=== PATIENT | male | born 1960 | race Caucasian/White ===

== ENCOUNTER 2018-11-19 07:41 | Day surgery (SDC) | payer BC ==
[2018-11-19] MEDS ORDERED: Depo-Medrol 40 MG/ML IM ONE (07:42)
[2018-11-19] MEDS ORDERED: Sodium Chloride 0.9(Preservative Free) 10 ML IJ ONE (07:42)
[2018-11-19] MEDS ORDERED: MORPHINE SULFATE 10 MG/ML ONE (09:32)
[2018-11-19] MEDS ORDERED: DIPRIVAN 200 MG/20 ML IV ONE (09:47)
[2018-11-19] MEDS ORDERED: Ketamine HCl 50 MG/ML ONE (09:47)
--- NOTE | 2018-11-19 10:55 | XRAY ---
Indication: Right L4-L5 and L5-S1 transforaminal MAX. Intraoperative fluoroscopy was provided for 28 seconds. 2 digital spot images submitted for interpretation demonstrates posterior needle tips projecting over the expected course of the right L4 and L5 nerve roots. Small amount of contrast injected for needle tip placement. Correlate with intraoperative findings/report.
--- NOTE | 2018-11-19 10:59 | XRAY ---
28 seconds of fluoroscopy was used in surgery for a right L4-L5 and L5-S1 transforaminal MAX.
[2018-11-19] MEDS ORDERED: Lactated Ringers 1,000 ML IV ONE (13:32)
== END 2018-11-19 09:55 | disposition home or self-care (01) ==
LOC: SDC-PAIN 07:41
PROVIDERS: ATTEND Psychiatry & Neurology Pain Medicine
DX: M54.16 Radiculopathy, lumbar region (principal); I10 Essential (primary) hypertension
CPT/HCPCS: 64483; 64484; 72020; 77003; J1030; J2270; J2704; Q9966

== ENCOUNTER 2019-05-06 08:29 | Day surgery (SDC) | payer OTHER ==
[2019-05-06] MEDS ORDERED: Sodium Chloride 0.9(Preservative Free) 10 ML IJ ONE (08:30)
[2019-05-06] MEDS ORDERED: Depo-Medrol 40 MG/ML IM ONE (08:30)
[2019-05-06] MEDS ORDERED: Ketamine HCl 50 MG/ML ONE (10:43)
[2019-05-06] MEDS ORDERED: DIPRIVAN 200 MG/20 ML IV ONE (10:43)
--- NOTE | 2019-05-06 12:21 | XRAY ---
33 seconds fluoroscopy time in surgery for right L4-S1 transforaminal MAX.
--- NOTE | 2019-05-06 12:31 | XRAY ---
Indication: Right L4-S1 transforaminal MAX. Intraoperative fluoroscopy was provided for 33 seconds. 3 digital spot images submitted for interpretation demonstrates posterior needle tips projecting over the expected course of the right L4 and L5 nerve roots. Small amount of contrast injected for needle tip placement. Correlate with intraoperative findings/report.
[2019-05-06] MEDS ORDERED: Lactated Ringers 1,000 ML IV ONE (14:30)
== END 2019-05-06 11:42 | disposition home or self-care (01) ==
LOC: SDC-PAIN 08:29
PROVIDERS: ATTEND Psychiatry & Neurology Pain Medicine
DX: M54.16 Radiculopathy, lumbar region (principal); I10 Essential (primary) hypertension; Z79.899 Other long term (current) drug therapy
CPT/HCPCS: 64483; 64484; 72100; 77003; J1030; J2704; Q9966

== ENCOUNTER 2021-08-15 06:52 | Day surgery (SDC) | payer OTHER ==
[2021-08-15] MEDS ORDERED: Ak-Dilate OPHTHALMIC*** 1.065 ML, Cyclogyl 1% OPHTH SOL 5 ML 1.065 ML, GATIFLOXACIN 0.5... OP ONE ×4 (07:00)
[2021-08-15] MEDS ORDERED: NON-FORMULARY ITEM OP ONE (07:00)
[2021-08-15] MEDS ORDERED: Lactated Ringers 1,000 ML IV SCH (07:00)
[2021-08-15] MEDS ORDERED: TETRACAINE 0.5% STERI-UNIT SOL OP ONE ×2 (07:00)
[2021-08-15] MEDS ORDERED: cefUROXime sodium 0.005 GM in Sodium Chloride Flush 30 ML*** 0.5 ML IJ ONE (07:00)
[2021-08-15] MEDS ORDERED: BETADINE 5% OPHTHALMIC 30 ML OP ONE (07:00)
[2021-08-15] MEDS ORDERED: Lactated Ringers 1,000 ML IV ONE (07:24)
[2021-08-15] MEDS ORDERED: Zofran 4 MG/2 ML VIAL IV PRN (09:00)
[2021-08-15] MEDS ORDERED: LIDOCAINE HCL 1% 50 MG/5 ML VL PF IJ ONE (09:00)
[2021-08-15] MEDS ORDERED: ACETAZOLAMIDE 250 MG TABLET PO ONE (09:00)
[2021-08-15] MEDS ORDERED: Epinephrine Preservative Free 1 MG/ML IJ ONE (09:00)
[2021-08-15] MEDS ORDERED: Versed 2 MG/2 ML Injection ONE ×2 (09:17→09:44)
[2021-08-15] MEDS ORDERED: SUBLIMAZE 100 MCG/2 ML ONE (09:17)
[2021-08-15 11:10] VITALS: BP 146/88; PULSE 100; O2SAT 99
== END 2021-08-15 11:11 | disposition home or self-care (01) ==
LOC: SDC 06:52
PROVIDERS: ATTEND Ophthalmology
DX: H25.812 Combined forms of age-related cataract, left eye (principal); I10 Essential (primary) hypertension
CPT/HCPCS: C1780; J0171; J2001; J2250; J3010; A9270-GY

== ENCOUNTER 2021-12-19 06:00 | Day surgery (SDC) | payer OTHER ==
[~2021-12-19 06:00] MED LIST: Ak-Dilate OPHTHALMIC*** 1.065 ML, Cyclogyl 1% OPHTH SOL 1.065 ML, GATIFLOXACIN 0.5% OPH... OP ONE; BETADINE 5% OPHTHALMIC 30 ML OP ONE; Lactated Ringers 1,000 ML IV SCH; NON-FORMULARY ITEM OP ONE; TETRACAINE 0.5% STERI-UNIT SOL OP ONE; cefUROXime sodium 0.005 GM in Sodium Chloride Flush 30 ML*** 0.5 ML IJ ONE
[2021-12-19] MEDS ORDERED: Lactated Ringers 1,000 ML IV ONE (06:12)
[2021-12-19] MEDS ORDERED: Zofran 4 MG/2 ML VIAL IV PRN (08:00)
[2021-12-19] MEDS ORDERED: ACETAZOLAMIDE 250 MG TABLET PO ONE (08:00)
[2021-12-19] MEDS ORDERED: Xylocaine-Mpf 2% 5 Ml Vial ONE (08:15)
[2021-12-19] MEDS ORDERED: DIPRIVAN 200 MG/20 ML IV ONE (08:15)
[2021-12-19] MEDS ORDERED: SUBLIMAZE 100 MCG/2 ML ONE (08:15)
[2021-12-19] MEDS ORDERED: Versed 2 MG/2 ML Injection ONE (08:15)
[2021-12-19 09:11] VITALS: O2SAT 95
[2021-12-19 09:22] VITALS: BP 117/74; PULSE 56
[2021-12-19] MEDS ORDERED: Epinephrine Preservative Free 1 MG/ML INTRAOP ONE (16:00)
[2021-12-19] MEDS ORDERED: LIDOCAINE HCL 1% 50 MG/5 ML VL PF IJ ONE (16:00)
== END 2021-12-19 09:29 | disposition home or self-care (01) ==
LOC: SDC 06:00
PROVIDERS: ATTEND Ophthalmology
DX: H25.811 Combined forms of age-related cataract, right eye (principal)
CPT/HCPCS: C1780; J0171; J2001; J2250; J2704; J3010; A9270-GY

== ENCOUNTER 2022-04-23 08:17 | Day surgery (SDC) | payer OTHER ==
--- NOTE | 2022-04-23 07:51 | HP ---
DATE OF SURGERY: 04/23/2022 HISTORY OF PRESENT ILLNESS: The patient is a 61-year-old gentleman had some diverticulitis a few weeks ago, mid to lower abdominal aches and pains treated with antibiotics and resolved. No prior colonoscopy. He is in need of screening colonoscopy. PAST MEDICAL HISTORY: Cataracts. Hyperlipidemia. Hypertension. History of diverticulitis flare up. PAST SURGICAL HISTORY: Appendectomy. Cataract. MEDICATIONS: Lisinopril, ibuprofen. ALLERGIES: NKDA. FAMILY HISTORY: Negative for colon cancer. Hypertension. SOCIAL HISTORY: No smoking. Occasional alcohol use. REVIEW OF SYSTEMS: Fourteen systems reviewed. No chest pain or palpitations. Other systems negative or noncontributory as above and per preadmission questionnaire. PHYSICAL EXAMINATION: GENERAL: No acute distress. HEENT: Sclerae nonicteric. NECK: No JVD. CHEST: Equal excursion, nonlabored breathing. CVS: Regular rate and rhythm. ABDOMEN: Soft. No peritoneal signs. EXTREMITIES: No significant edema. NEURO: Alert, oriented, moving extremities symmetrically. RECTAL: Deferred timed to endoscopy exam. PSYCH: Appropriate mood and affect. IMPRESSION: No prior colonoscopy. History of diverticulitis several weeks ago, resolved. He is in need of screening colonoscopy. I feel he is a candidate. General risk of bleeding or infection, risk of bowel injury or perforation possibly requiring further procedure, risk of missed or nondiagnosis or incomplete exam possibly requiring barium enema, other studies or procedures, general risk of anesthesia or sedation, risk of bowel prep but not limited to, consent obtained. Will proceed with outpatient screening colonoscopy.
[~2022-04-23 08:17] MED LIST changes: -Ak-Dilate OPHTHALMIC*** 1.065 ML, Cyclogyl 1% OPHTH SOL 1.065 ML, GATIFLOXACIN 0.5% OPH... OP ONE; -BETADINE 5% OPHTHALMIC 30 ML OP ONE; +Lactated Ringers 1,000 ML IV ONE; -NON-FORMULARY ITEM OP ONE; -TETRACAINE 0.5% STERI-UNIT SOL OP ONE; -cefUROXime sodium 0.005 GM in Sodium Chloride Flush 30 ML*** 0.5 ML IJ ONE
[2022-04-23] MEDS ORDERED: DIPRIVAN 200 MG/20 ML IV ONE ×3 (10:50→11:17)
[2022-04-23] MEDS ORDERED: Versed 2 MG/2 ML Injection ONE (10:50)
[2022-04-23] MEDS ORDERED: Xylocaine-Mpf 2% 5 Ml Vial ONE (10:51)
[2022-04-23 12:00] VITALS: BP 151/88; PULSE 58; O2SAT 99
--- NOTE | 2022-04-23 15:13 | OP ---
SURGERY DATE/TIME: 04/23/2022 1049 PREOPERATIVE DIAGNOSES: 1) No prior colonoscopy, need for screening colonoscopy. 2) Prior history of diverticulitis. POSTOPERATIVE DIAGNOSES: 1) Two large sigmoid colon polyps with smaller additional sigmoid colon polyps, small rectal polyp. 2) Diverticulosis left colon. 3) ASA Class II. 4) Withdrawal time about 14 minutes including polypectomy time. PROCEDURES: 1) Colonoscopy to cecum with hot snare polypectomy and approximately 1.2 cm proximal sigmoid colon polyp with ink spot tattooing of the location. 2) Hot snare polypectomy of 1.1 cm polyp mid sigmoid colon with ink spot tattooing of location. 3) Hot biopsy polypectomy of two additional 3 mm sigmoid colon polyps. 4) Hot biopsy polypectomy of small rectal polyp versus hyperplastic lesion. SURGEON: Dr. Gilbert Marshall. ANESTHESIA: MAC. ESTIMATED BLOOD LOSS: Minimal. INDICATIONS: As noted above. Risks and benefits explained in detail but not limited to and consent obtained. DESCRIPTION OF PROCEDURE AND FINDINGS: The patient is taken to the endoscopy room. MAC anesthesia induced. After official time out and no disagreement with planned procedure, digital rectal exam did not reveal any rectal masses. Video colonoscope inserted and passed up through the slightly tortuous sigmoid, descending, transverse and ascending colon around to the cecum. Appendiceal orifice and valve well visualized and photo documented. Prep overall was good to fair with a little bit of liquidy stool throughout the colon. The scope is slowly and carefully withdrawn over the next [id number] minutes stopping to remove a large pedunculated polyp in the proximal sigmoid colon removed with hot snare polypectomy with brief bursts of cautery. Ink spot tattooing injected at the base to [place] the location. Appeared to have adequate hemostasis. Scope pulled back a little bit further in the sigmoid colon, mid sigmoid colon and another approximately 1.2 cm and 1 cm removed with hot snare polypectomy of pedunculated polyp, ink spot tattooing injected at the base. There were two other small 3 mm sigmoid colon polyps removed with hot snare polypectomy and another 2.5 mm polyp in the rectum removed with hot biopsy polypectomy. Good hemostasis noted. The scope is withdrawn. The patient tolerated the procedure well. Findings discussed with the family out in the waiting area. I will see him back in the office in a couple of weeks to go over the path results.
== END 2022-04-23 12:05 | disposition home or self-care (01) ==
LOC: SDC 08:17
PROVIDERS: ATTEND Surgery
DX: Z12.11 Encounter for screening for malignant neoplasm of colon (principal); Z87.19 Personal history of other diseases of the digestive system; D12.5 Benign neoplasm of sigmoid colon; K62.1 Rectal polyp; K57.30 Diverticulosis of large intestine without perforation or abscess without bleeding
CPT/HCPCS: J2250; J2704